=== PATIENT | male | born 1955 | race African-American/Black ===

== ENCOUNTER 2017-05-25 16:50 | Inpatient (IN) | payer OTHER ==
[~2017-05-25] VITALS: Ht 185.4 cm; Wt 80.7 kg
--- NOTE | ~2017-05-25 | PN ---
Unit #: [id number] #: [id number] Patient: ANISHA GILL [id number] [facility] [address] [place] [address] [id number] MR#: [id number] NAME: ANISHA GILL. ROOM: P205 Age: 62 Sex: M Admission Date: 05/25/2017 : 1955 Attending Physician: Addy Espinosa M.D. Admitting Physician: Addy Espinosa M.D. Primary Care Physician: Primary Care Physician Socorro WU PROGRESS NOTES DATE OF SERVICE: 05/27/2017 SUBJECTIVE Mr. Gill is a 62-year-old male, who was seen today and chart was reviewed, and case was discussed with the staff. He has been anxious, withdrawn, and rather seclusive to himself. Meanwhile, he has been cooperative with treatment recommendations and has been taking the medications and tolerating them fairly well with no reported side effects. MENTAL STATUS EXAMINATION Middle-aged male who was casually dressed with fair personal hygiene, appears to be in no acute distress or discomfort. He was awake and alert on interaction with intact orientation. His mood was anxious with a congruent affect. His speech was slow and goal directed. He denies any suicidal or homicidal ideation. His insight and judgment remain slightly impaired. TREATMENT PLAN 1. We will continue him on his current medications and treatment protocol. We will monitor his response to medications and make further adjustments as needed. 2. We will continue to follow up. Dictated by... Stephania Conroy/eric TD: 05/27/2017 13:13 JOB #: [id number] [facility] PROGRESS NOTES Page 1 of 1 X Addy Espinosa MD X PROGRESS NOTE
--- NOTE | ~2017-05-25 | PN ---
Unit #: [id number] #: [id number] Patient: ANISHA GILL [id number] [facility] [address] [place] [address] [id number] MR#: [id number] NAME: ANISHA GILL. ROOM: P205 Age: 62 Sex: M Admission Date: 05/25/2017 : 1955 Attending Physician: Addy Espinosa M.D. Admitting Physician: Addy Espinosa M.D. Primary Care Physician: Primary Care Physician Socorro WU PROGRESS NOTES DATE 05/28/2017 DISCUSSION Mr. Gill is a [id number], male with substance abuse and mood disorder who was seen today and chart was reviewed and case was discussed with the staff. He remains anxious, withdrawn, depressed and rather seclusive to himself though has been cooperative with treatment recommendations. He has been taking medications and tolerating them fairly well with no reported side effects. MENTAL STATUS EXAM An elderly male who was casually dressed with fair personal hygiene, appears to be in no acute distress or discomfort. He was awake and alert with impaired attention and concentration. His mood was anxious with congruent affect. He denies any suicidal or homicidal ideation. His insight and judgement remains slightly impaired. TREATMENT PLAN 1. We will continue him on his current medications and treatment protocol. We will monitor his response to the medication and make further adjustments as needed. 2. We will continue to follow up. Dictated by... Stephania Conroy/manuela TD: 05/28/2017 23:10 JOB #: [id number] Unit #: [id number] #: [id number] Patient: [facility]ILL [facility] PROGRESS NOTES Page 1 of 1 X Addy Espinosa MD X PROGRESS NOTE
--- NOTE | ~2017-05-25 | HP ---
Unit #: [id number] #: [id number] Patient: VETO GILL [id number] [place] [address] [id number] MR#: [id number] NAME: VETO GILL. ROOM: P205 Age: 62 Sex: M Admission Date: 05/25/2017 : 1955 Attending Physician: Addy Espinosa M.D. Admitting Physician: Addy Espinosa M.D. Primary Care Physician: Primary Care Physician No HISTORY AND PHYSICAL HISTORY OF PRESENT ILLNESS Veto is a 62 year old admitted to [address] [place] [address] because of his continued drug use. He snorts heroin. PAST MEDICAL HISTORY 1. Long history of opioid abuse to include snorting heroin. 2. History of hepatitis B. 3. High blood pressure. PAST SURGICAL HISTORY 1. Right hip replaced. 2. Right eye after a traumatic injury. ALLERGIES No known drug allergies. SOCIAL HISTORY Smokes 1 pack per day. Drinks alcohol on occasion. Admits to a long history of opioid abuse to include snorting heroin. He denies IV drug use. FAMILY HISTORY Medically noncontributory. REVIEW OF SYSTEMS CONSTITUTIONAL: No fever or chills. HEENT: Denies any sore throat, ear pain or runny nose. CARDIOVASCULAR: Denies chest pain, irregular heart rhythm or palpitations. CHEST: Denies shortness of breath or cough. No hemoptysis. GASTROINTESTINAL: Denies nausea, vomiting, diarrhea or chronic constipation. ENDOCRINE: Denies history of increased thirst or urination. No recent significant weight loss or gain. GENITOURINARY: Denies dysuria, frequency, or hematuria. SKIN: Denies any rashes. HEMATOLOGIC: Denies history of increased bleeding or bruising. MUSCULOSKELETAL: Denies any hot, swollen joints. No generalized muscle pain. NEUROLOGIC: Denies problems with his speech. 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 CURRENT MEDICATIONS 1. Norvasc 10 mg daily. 2. Lasix 20 mg daily. 3. Lexapro 10 mg daily. Unit #: [id number] #: [id number] Patient: VETO GILL 4. Motrin p.r.n. 5. Milk of Magnesia p.r.n. 6. Maalox p.r.n. 7. Tylenol p.r.n. 8. Multivitamin 1 daily. 9. Detox protocol. PHYSICAL EXAMINATION GENERAL: Alert, well-nourished, in no apparent distress. VITAL SIGNS: Blood pressure 126/66, heart rate 60, respirations 16, temperature 98.6. WEIGHT: 178. HEIGHT: 6 feet 1 inch. SKIN: Warm and dry without rash or lesion. HEENT: Normocephalic. TMs not viewed. Oral and nasal passages clear. 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 Left conjunctivae is clear and pupil is reactive to light. Extraocular movements intact. NECK: Supple without lymphadenopathy or thyromegaly. HEART: Regular rate and rhythm without murmur. LUNGS: Clear. ABDOMEN: Soft, nontender. : Not done. EXTREMITIES: No evidence of cyanosis, clubbing or edema. Moves all without focal deficit. NEUROLOGICAL: Grossly within normal limits. Cranial Nerves: II: Visual dasilva are intact in the left eye. 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 III, IV AND : Extraocular movements are intact. Pupils are equal, round and reactive to light. V: Facial sensation is grossly normal. VII: Facial movements and expression are normal. VIII: Auditory acuity grossly intact. IX, X: Uvula is midline. Phonation is normal. XI: Patient shrugs shoulders and turns head normally. XII: Tongue protrudes in the midline. Sensory and Motor Function: Sensory and motor sensation is grossly normal. Motor: moves all extremities well. Coordination: Gait is normal. Deep Tendon Reflexes: Intact. IMPRESSION Psychiatric admission. RECOMMENDATIONS PSYCHIATRIC: Per psychiatrist. MEDICAL: See no contraindication to participate in facility's activities. MEDICAL PROGNOSIS Good. MEDICAL CONDITION Stable. Dictated by... Zoila Jernigan P.A.-C. for Junaid Dos Santos M.D. Unit #: [id number] #: [id number] Patient: VETO GILL LOLY/mao TD: 05/26/2017 19:50 JOB #: [id number] HISTORY AND PHYSICAL Page 1 of 1 X Zoila Jernigan HISTORY AND PHYSICAL
--- NOTE | ~2017-05-25 | DS ---
Unit #: [id number] #: [id number] Patient: [facility] [id number] [facility] [address] [place] [address] [id number] MR#: [id number] NAME: ANISHA GILL. ROOM: P205 Age: 62 Sex: M Admission Date: 05/25/2017 : 1955 Discharge Date: 05/30/2017 Attending Physician: Addy Espinosa M.D. Primary Care Physician: Primary Care Physician No DISCHARGE SUMMARY IDENTIFYING DATA Mr. Gill is a 62-year-old male who is a resident of [place], [place], and is known to us from previous encounter, and was self-referred to the hospital on a voluntary basis. DISCHARGE DIAGNOSES Psychiatric: Opioid dependence, moderate and acute withdrawal; opioid-induced mood disorder. Medical: Hypertension. Stressors: Moderate psychosocial stressors. HISTORY OF PRESENT ILLNESS Please see initial psychiatric evaluation for details. PAST PSYCHIATRIC HISTORY Please see initial psychiatric evaluation for details. PAST MEDICAL HISTORY Please see initial psychiatric evaluation for details. HOSPITAL COURSE The patient was [facility] and was oriented to the hospital environment. Routine p.r.n. medications were initiated, and he was started back on his home medications and detox protocol was initiated and he was also started on Lexapro to help with depression and he was closely monitored. He was taking the medications regularly and was tolerating them fairly well and was able to show a decent therapeutic response and was willing to continue treatment on an outpatient basis and as such, it was decided that he will be discharged home and will continue treatment on an outpatient basis. DISCHARGE MEDICATIONS Lexapro 10 mg a day for depression. DISCHARGE CONDITION Stable. PROGNOSIS Fair. Dictated by... Addy Espinosa M.D. Unit #: [id number] #: [id number] Patient: ANISHA GILL IAA/modl TD: 05/30/2017 19:28 JOB #: [id number] DISCHARGE SUMMARY Page 1 of 1 X Addy Espinosa MD X DISCHARGE SUMMARY
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
--- NOTE | ~2017-05-25 | PN ---
Unit #: [id number] #: [id number] Patient: ANISHA GILL [id number] [facility] [address] [place] [address] [id number] MR#: [id number] NAME: ANISHA GILL. ROOM: P205 Age: 62 Sex: M Admission Date: 05/25/2017 : 1955 Attending Physician: Addy Espinosa M.D. Admitting Physician: Addy Espinosa M.D. Primary Care Physician: Primary Care Physician Socorro WU PROGRESS NOTES DATE 05/29/2017 DISCUSSION Mr. Gill is a 62-year-old male who was seen today and chart was reviewed and case was discussed with the staff. He has been anxious, withdrawn and seclusive to himself. Meanwhile, he has been cooperative with treatment recommendations and has been taking medications and tolerating them fairly well. MENTAL STATUS EXAMINATION An elderly male who was casually dressed with fair personal hygiene and appears to be in no acute distress or discomfort. He was awake and alert on interaction with intact orientation. His mood was anxious with congruent affect. He denies any suicidal or homicidal ideations. His insight and judgement remains slightly impaired. TREATMENT PLAN 1. Will continue on his current medications and treatment protocol. Will monitor his response to the medications and make further adjustments as needed. 2. Will continue to follow up. Dictated by... Addy Espinosa M.D. IAA/mao TD: 05/29/2017 22:42 JOB #: [id number] Unit #: [id number] #: [id number] Patient: ANISHA GILL PROGRESS NOTES Page 1 of 1 X Addy Espinosa MD X PROGRESS NOTE
[2017-05-26 09:44] LABS: BASOPHIL% 0.4 % (0-2.5); EOSINOPHIL# 0.1 X10e3 (0-0.7); EOSINOPHIL% 1.6 % (0.0-7.0); HEMATOCRIT 37.9 % (38.0-50.0); HEMOGLOBIN 13.2 gm/dL (13.0-16.0); LYMPHOCYTE# 1.8 X10e3 (1.0-3.5); LYMPHOCYTE% 29.1 % (17.0-45.0); MEAN CELL VOLUME 86.9 FL (83-96); MEAN CORPUSCULAR HEMOGLOBIN 30.2 PG (28-34); MEAN CORPUSCULAR HGB CONC 34.8 g/dL (30-36); MEAN PLATELET VOLUME 6.7 FL (6.5-11.5); MONOCYTE# 0.5 X10e3 (0-1.0); MONOCYTE% 8.6 % (3.0-12.0); NEUTROPHIL# 3.7 X10e3 (1.5-7.1); NEUTROPHIL% 60.3 % (40-75); PLATELET COUNT 281 X10e3 (140-420); RED BLOOD COUNT 4.36 X10e (3.90-5.60); RED CELL DISTRIBUTION WIDTH 13.2 % (11.0-15.5); WHITE BLOOD COUNT 6.1 X10e3 (4.0-10.5)
[2017-05-26 09:51] LABS: DIFF IND NO
[2017-05-26 09:56] LABS: ALBUMIN SERUM 3.4 g/dL (3.5-5.0); BILIRUBIN,TOTAL 0.9 mg/dL (0.2-2.0); BUN/CREATININE RATIO 12.85; CREATININE SERUM 0.7 mg/dL (0.6-1.4); GLOM FILT RATE Estimated 116.5 mL/min (>60); PROTEIN TOTAL SERUM 6.2 g/dL (6.0-8.3)
[2017-05-27 10:02] LABS: URINE APPEARANCE CLEAR; URINE BACTERIA AUWI NEG (NEGATIVE); URINE BILIRUBIN NEG (NEG); URINE BLOOD NEG (NEG); URINE COLOR YELLOW; URINE GLUCOSE NEG (NEG); URINE KETONE NEG (NEG); URINE LEUKOCYTE ESTERASE NEG (NEG); URINE NITRATE NEG (NEG); URINE PH 8.5 (5-8); URINE PROTEIN 1+ (NEG); URINE SPECIFIC GRAVITY 1.012 (1.003-1.035); URINE SQUAMOUS EPITHELIAL CELL NONE SEEN /[HPF]
[2017-05-27 10:14] LABS: URBCS1 AUWI 0-2 /[HPF] (0-2)
[2017-05-27 10:32] LABS: AMPHETAMINE NEG (NEG); BARBITURATES NEG (NEG); BENZODIAZEPINES NEG (NEG); COCAINE NEG (NEG); MARIJUANA NEG (NEG); OPIATES POS (NEG); TRICYCLIC ANTIDEPRESSANTS NEG (NEG); U METHADONE NEG (NEG)
== END 2017-05-30 14:02 | disposition home or self-care (01) | DRG 897 ==
LOC: P2S 20:36
PROVIDERS: Psychiatry & Neurology Psychiatry
DX: F11.23 Opioid dependence with withdrawal (principal); R45.851 Suicidal ideations; F11.24 Opioid dependence with opioid-induced mood disorder; Z96.641 Presence of right artificial hip joint; F17.210 Nicotine dependence, cigarettes, uncomplicated; I10 Essential (primary) hypertension
CPT/HCPCS: 80053; 80307; 81003; 85025; 86592